=== PATIENT | female | born 1980 | race Caucasian/White ===

== ENCOUNTER 2016-08-14 18:12 | Inpatient (IN) | payer OTHER ==
--- NOTE | 2016-08-14 18:37 | EDPHY ---
H & P Stated Complaint: SOB, Dizzy. Time Seen by Provider: 08/14/16 18:37 - Personal History LMP (Females 10-55): 15-21 Days Ago Current Tetanus/Diphtheria Vaccine: Yes Current Tetanus Diphtheria and Acellular Pertussis (TDAP): Yes - Medical/Surgical History Hx Asthma: No Hx Chronic Respiratory Disease: No Hx Diabetes: No Hx Cardiac Disease: No Hx Renal Disease: No Hx Cirrhosis: No Hx Alcoholism: No Hx HIV/AIDS: No Hx Splenectomy or Spleen Trauma: No Other PMH: PMH: denies - Social History Smoking Status: Never smoked Constitutional: Initial Vital Signs Temperature (C) 36.6 C 08/14/16 18:24 Heart Rate 118 H 08/14/16 18:24 Respiratory Rate 24 H 08/14/16 18:24 Blood Pressure 110/86 H 08/14/16 18:24 O2 Sat (%) 80 L 08/14/16 18:24 O2 Delivery Mode Simple Mask O2 (L/minute) 10 Allergies/Adverse Reactions: No Known Allergies Allergy (Verified 08/14/16 20:29) Home Medications: Medication Instructions Recorded Cholecalciferol Vit D3 [Vitamin D3 5,000 units PO DAILY 08/14/16 (*)] Herbals/Supplements -Info Only 1 ea PO DAILY 08/14/16 Multivitamins [Multivitamin (*)] 1 each PO DAILY 08/14/16 Norethindrone AC-Eth Estradiol 1 tab PO DAILY 08/14/16 [Junel 1 mg-20 Mcg Tablet] Medical Decision Making ED Course/Re-evaluation: CHIEF COMPLAINT: Skiing injury, shortness of breath. HISTORY OF PRESENT ILLNESS: This patient is a 36 year old female who presents to the Emergency Department following a ski injury this afternoon. She tells me that hit the roots of a tree when she flipped over, landing face-down in the snow. She was wearing a helmet at the time and denies loss of consciousness. Upon arrival, her only complaint is shortness of breath. She states that she is unable to walk more than a few steps before becoming acutely out of breath. She denies head, chest, or neck pain. No pertinent medical history. REVIEW OF SYSTEMS: A 10 point review of systems was performed and is negative with the exception of the elements mentioned in the history of present illness. PHYSICAL EXAM: HR 113, BP 110/86, O2 Sat 85%, RR 24. Temp noted General Appearance: Alert, well hydrated, appropriate, and non-toxic appearing. Head: Atraumatic without scalp tenderness or obvious injury Eyes: Pupils equal, round, reactive to light and accommodation, EOMI, no trauma , no injection. Ears: Clear bilaterally, no perforation, normal landmarks Nose: Atraumatic, no rhinorrhea, clear. Throat: There is no erythema or exudates, no lesions, normal tonsils, mucus membranes moist. Neck: Supple, 2+ carotid upstroke, nontender, no lymphadenopathy. Respiratory: No retractions, no distress, no wheezes, and no accessory muscle use. Lungs are clear to auscultation bilaterally. Cardiovascular: Regular rate and rhythm, no murmurs, rubs, or gallops. Bilateral carotid, radial, dorsalis pedis, and posterior tibial pulses intact. Good capillary refill all extremities. Gastrointestinal: Abdomen is soft, nontender, non-distended, no masses, no rebound, no guarding, no peritoneal signs. Musculoskeletal: Normal active ROM of all extremities, atraumatic. Neurological: Alert, appropriate, and interactive. The patient has normal DTRs and non-focal cranial nerves, motor, sensory, and cerebellar exam. Skin: No rashes, good turgor, no nodules on palpation. Past medical history: Denies. Past surgical history: Denies. Social history: Partner at bedside. Works in [employer] at [place]. DIAGNOSTICS/PROCEDURES/CRITICAL CARE TIME: EKG INTERPRETATION: The 12 lead EKG was interpreted by myself: Sinus tachycardia, rate 108. Technically challenged but otherwise normal. See hard copy and/or "tracemaster" electronic copy for interpretation. IMAGING: Study: X-ray of the chest Indication: Shortness of breath, hypoxemia Results: X-ray of the chest was obtained. The results of the study are: negative for acute process. The study was read by the radiologist, Dr. Stevenson Polanco. I viewed the images myself on the PACS system. Study: CT of the chest Indication: Shortness of breath, hypoxemia Results: CT of the chest was obtained. The results of the study are: bilateral proximal pulmonary emboli. The study was read by the radiologist, Dr. Stevenson Polanco. I viewed the images myself on the PACS system. DIFFERENTIAL DIAGNOSIS: The differential diagnosis for the patient's shortness of breath and hypoxemia included but was not limited to pneumothorax, acute mountain sickness, high altitude pulmonary edema, congestive heart failure , and pulmonary embolus. MEDICAL DECISION MAKING: This is a 36 year old female who presents following a ski injury without pain or complaints apart from dyspnea. She is, however, tachycardic and hypoxemic on the monitor ranging from 83% to 85% on RA. I am suspicious of possible pneumothorax and will proceed with a chest x-ray at this time. The patient has given consent for this. 1855: X-ray of the chest is negative for pneumothorax. Will proceed with CT of the chest and i-Stat for further evaluation. 1933: CTA of the chest is positive for bilateral proximal pulmonary emboli, as reported to me by Dr. Stevenson Polanco. I shared these results with the patient. Will proceed with admission. 1934: Consultation with Dr. Gina Eden, hospitalist, who accepts admission to the ICU. She requests administration of IV Heparin. Doppler US of both lower extremities is ordered as well prior to admission 2030: Labs demonstrate an elevated Troponin secondary to heart strain. I discussed this with Dr. Gina Eden so that she may determine next steps with the critical care team as the patient transitions to the ICU. - Data Points Laboratory Results: Laboratory Results 08/14/16 18:45 08/14/16 18:45 08/14/16 08/14/16 18:59 18:45 WBC 11.43 H 10^3/uL (3.80-9.50) RBC 4.86 10^6/uL (4.18-5.33) Hgb 15.2 g/dL (12.6-16.3) POC Hgb 13.9 gm/dL (12.3-15.9) Hct 43.6 % (38.0-47.0) POC Hct 41 % (35.5-47.5) MCV 89.7 fL (81.5-99.8) MCH 31.3 pg (27.9-34.1) MCHC 34.9 g/dL (32.4-36.7) RDW 12.5 % (11.5-15.2) Plt Count 197 10^3/uL (150-400) MPV 9.7 fL (8.7-11.7) Neut % (Auto) 79.8 H % (39.3-74.2) Lymph % (Auto) 14.3 L % (15.0-45.0) [place] % (Auto) 4.9 % (4.5-13.0) Eos % (Auto) 0.2 L % (0.6-7.6) Baso % (Auto) 0.5 % (0.3-1.7) Nucleat RBC Rel Count 0.0 % (0.0-0.2) Absolute Neuts (auto) 9.12 H 10^3/uL (1.70-6.50) Absolute Lymphs (auto) 1.64 10^3/uL (1.00-3.00) Absolute Monos (auto) 0.56 10^3/uL (0.30-0.80) Absolute Eos (auto) 0.02 L 10^3/uL (0.03-0.40) Absolute Basos (auto) 0.06 10^3/uL (0.02-0.10) Absolute Nucleated RBC 0.00 10^3/uL (0-0.01) Immature Gran % 0.3 % (0.0-1.1) Immature Gran # 0.03 10^3/uL (0.00-0.10) PT 12.8 SEC (12.0-15.0) INR 0.97 (0.83-1.16) APTT 25.2 SEC (23.0-38.0) POC Sodium 141 mEq/L (134-144) Sodium 139 mEq/L (134-144) POC Potassium 4.1 mEq/L (3.3-5.0) Potassium 4.1 mEq/L (3.5-5.2) POC Chloride 106 mEq/L (96-108) Chloride 106 mEq/L (97-110) Carbon Dioxide 21 L mEq/l (22-31) Anion Gap 12 mEq/L (8-16) POC BUN 15 mg/dL (7-23) BUN 13 mg/dL (7-23) Creatinine 0.8 mg/dL (0.6-1.0) POC Creatinine 0.8 mg/dL (0.6-1.2) Estimated GFR > 60 Glucose 118 H mg/dL (70-100) POC Glucose 120 H mg/dL (70-100) Calcium 8.9 mg/dL (8.5-10.4) Troponin I 0.536 H ng/mL (0-0.034) NT-Pro-B Natriuret Pep 341 H pg/mL (0-125) Medications Given: Discontinued Medications Heparin Sodium (Porcine) (Heparin Injection) 0 unit IVP EDNOW ONE PRN Reason: Protocol Stop: 08/14/16 19:40 Last Admin: 08/14/16 20:32 Dose: 5,300 units Heparin Sodium (Porcine) (Heparin 50 Units/Ml (Premix)) 500 mls @ 0 mls/hr IV EDNOW ONE; Per Protocol PRN Reason: Protocol Stop: 08/14/16 19:40 Last Admin: 08/14/16 20:32 Dose: 500 mls Point of Care Test Results: 08/14/16 18:59 POC Sodium 141 POC Potassium 4.1 POC Chloride 106 POC BUN 15 POC Creatinine 0.8 POC Glucose 120 H Departure - Departure Disposition: [facility] Inpatient Acute Clinical Impression: Pulmonary emboli Qualifiers: Pulmonary embolism type: other Chronicity: acute Acute cor pulmonale presence: without acute cor pulmonale Qualifier Code: (I26.99) Other pulmonary embolism without acute cor pulmonale Condition: Fair Report Scribed for: Bruce Warren Report Scribed by: Cee Poole Date of Report: 08/14/16 Time of Report: 18:38
--- NOTE | 2016-08-14 18:58 | CPEKG ---
Heart Rate: 108 RR Interval: 556 P-R Interval: 136 QRSD Interval: 82 QT Interval: 344 QTC Interval: 461 P Tatamy: 66 QRS Tatamy: 75 T Wave Tatamy: 11 EKG Severity - OTHERWISE NORMAL ECG - EKG Impression: SINUS TACHYCARDIA Electronically Signed By: Bruce Warren 14-Aug-2016 23:03:09
--- NOTE | 2016-08-14 18:59 | DX ---
Portable Chest 18:49 History: Dyspnea after blunt chest trauma Comparison: None Findings: Lungs clear without consolidation, hemorrhage, effusion or pneumothorax. Heart and mediasti num look normal. No acute fracture is identified. There are old healed distal right clavicular shaft and right lateral seventh rib fractures. The thoracic spine is normally aligned and there is no luca francisco stripe widening. EKG leads and oxygen tubing overlie the chest. Impression: Nothing acute identified.
[2016-08-14] MEDS ORDERED: IOPAMIDOL (ISOVUE-300) 100 ML BTL IV ONE (19:07)
[2016-08-14 19:34] LABS: % IMMATURE GRANULYOCYTES 0.3 % (0.0-1.1); ABSOLUTE IMMATURE GRANULOCYTES 0.03 10^3/uL (0.00-0.10); ADD DIFF? NO; ADD MORPH? NO; ADD SCAN? NO; ATYPICAL LYMPHOCYTE FLAG 0 (0-99); FRAGMENT RBC FLAG 0 (0-99); HEMATOCRIT 43.6 % (38.0-47.0); HEMOGLOBIN 15.2 g/dL (12.6-16.3); LEFT SHIFT FLG 0 (0-99); LIPEMIA HEMOLYSIS FLAG 90 (0-99); MEAN CELL HEMOGLOBIN 31.3 pg (27.9-34.1); MEAN CELL HEMOGLOBIN CONCENTR. 34.9 g/dL (32.4-36.7); MEAN CELL VOLUME 89.7 fL (81.5-99.8); MEAN PLATELET VOLUME 9.7 fL (8.7-11.7); PLATELET CLUMPS FLAG 0 (0-99); PLATELET COUNT 197 10^3/uL (150-400); RED BLOOD CELL COUNT 4.86 10^6/uL (4.18-5.33); RED CELL DISTRIBUTION WIDTH 12.5 % (11.5-15.2)
[2016-08-14 19:39] LABS: APTT 25.2 SEC (23.0-38.0); INR 0.97 (0.83-1.16); PROTIME(PATIENT) 12.8 SEC (12.0-15.0)
[2016-08-14] MEDS ORDERED: HEPARIN/DEXTROSE 500 ML IV ONE (19:39)
[2016-08-14] MEDS ORDERED: HEPARIN 10,000 UNIT/10 ML MDV IVP ONE ×2 (19:39→20:25)
[2016-08-14 19:40] LABS: ANION GAP 12 mEq/L (8-16); CALCIUM 8.9 mg/dL (8.5-10.4); CARBON DIOXIDE 21 mEq/l (22-31); CHLORIDE 106 mEq/L (97-110); CREATININE 0.8 mg/dL (0.6-1.0); GLOMERULAR FILTRATION RATE > 60; GLUCOSE 118 mg/dL (70-100); POTASSIUM 4.1 mEq/L (3.5-5.2); SODIUM 139 mEq/L (134-144)
[2016-08-14 19:52] LABS: TROPONIN I 0.536 ng/mL (0-0.034)
[2016-08-14] MEDS ORDERED: HEPARIN 10,000 UNIT/10 ML MDV IVP PRN (20:25)
[2016-08-14] MEDS ORDERED: NS 1,000 ML IV ONE ×2 (20:36→20:39)
[2016-08-14] MEDS ORDERED: ONDANSETRON 4 MG/2 ML VIAL IVP PRN (20:40)
[2016-08-14] MEDS ORDERED: ACETAMINOPHEN 325 MG TAB PO PRN (20:40)
--- NOTE | 2016-08-14 21:20 | CT ---
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 Chest pain and shortness of breath. Technique: During machine power injection of 85 mL [id number]-300, intravenously, multidetector helical CT imaging was performed from the superior thoracic inlet to the diaphragm. The radiologist manipula prema images at the computer workstation. Dose reduction techniques were utilized. Comparison: None. Findings: The patient does not have any posttraumatic findings. Specifically, there is no pulmonary contusion. No pulmonary edema. No pneumothorax or pneumomediastinum. No fractures. What the patient does have is extensive bilateral pulmonary embolism, involving the distal main pulmo nary arteries, especially on the left, and subsequently multiple segmental branches in both lower lob es. There is a partially occlusive clot in the right middle lobe. The upper lobes are relatively sp ared. Visualized upper abdomen is normal. Impressions 1. No fractures, pneumothorax, or mediastinal injury. 2. Extensive bilateral pulmonary embolism, involving main distal pulmonary arteries, and multiple lo wer lobe segmental arteries. Please see details above. Findings are discussed with Dr. Bruce Warren.
--- NOTE | 2016-08-14 21:29 | US ---
Bilateral Lower Extremity Duplex Venous Doppler INDICATION: Significant bilateral pulmonary embolism. Evaluate source. TECHNIQUE: Bilateral lower extremity venous Doppler and mendez-scale evaluation is performed. FINDINGS: Right lower extremity duplex Doppler is normal. There is a very short segment of the left popliteal artery that contains what looks like partially oc clusive chronic or subacute clot. This clot is adherent to the anterior wall. There is flow through the posterior segment of it. The total segment involved is probably only about 4 to 5 cm. The calf vessels and the thigh vessels are otherwise totally normal on the left. Impressions 1. Negative right lower externally Doppler. 2. Partially occlusive short segment popliteal clot that appears either chronic or subacute. Could it be possible that because of the patient's recent skiing activity, she sustained acute on chronic c lot that has not had the chance to manifest clinically, and with today's fall, was abruptly dislodged , creating extensive bilateral pulmonary emboli? Findings are discussed with Dr. Bruce Warren.
--- NOTE | 2016-08-14 21:33 | GHP ---
[f rep st] HISTORY AND PHYSICAL DATE OF ADMISSION: 08/14/2016 CHIEF COMPLAINT: Shortness of breath. 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 She flipped over, landed face down. She popped out of both of her skis. She did h it her head but was wearing a helmet and never had any loss of consciousness. At this point she aaron es any significant physical injury from the fall. Immediately after her fall when she got up, she noted she was having more problems breathing. Prior to her fall she was skiing relatively hard without any shortness of breath. After her fall she got v selena winded just [place] the [place] the [place]. She tried to take a break but was having ongoi ng dizziness and lightheadedness and shortness of breath and so called paramedics. They found her to be tachycardic. She was brought to urgent care, and she was found to be significantly hypoxemic and eventually came to the emergency room. She denies any lower extremity edema. She was feeling in he r normal state of health until this fall. She denies any chest pain. She would just get extremely w inded and could only take a few steps before having to stop to catch her breath. PAST MEDICAL HISTORY: 1. Distant viral meningitis. 2. Multiple orthopedic injuries. MEDICATIONS: She is on oral contraceptive. ALLERGIES: No known drug allergies. SOCIAL HISTORY: No smoking. Occasional alcohol. 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 She lives with her . REVIEW OF SYSTEMS: Complete review of systems obtained. Review of systems is negative on constituti onal, HEENT, GI, pulmonary, cardiovascular, , hematology, skin, musculoskeletal, endocrine, psych e xcept for positives as in HPI. FAMILY HISTORY: Negative for pulmonary embolus. PHYSICAL EXAMINATION: GENERAL: Well-developed, well-nourished female in no acute distress. VITAL S IGNS: Temperature is 36.6, pulse 120, respirations 24, blood pressure 107/83, saturating 88% on 10 L . EYES: Normal conjunctivae. Pupils react to light. ENT: Normal ears, nose. Hearing intact. No rmal lips and teeth. Oropharynx moist. NECK: Trachea midline. No thyromegaly. CHEST: Normal eff ort. LUNGS: Clear to auscultation bilaterally. CARDIOVASCULAR: Regular rhythm. No murmur. No lo wer extremity edema. She is tachycardic. ABDOMEN: Soft, nontender. No hepatosplenomegaly. SKIN: Warm, dry, intact. No rash. MUSCULOSKELETAL: No cyanosis or clubbing. Strength 5/5 upper and low er extremities. NEUROLOGIC: Cranial nerves intact. Normal sensation to light touch. PSYCHIATRIC: Alert and oriented x3. Normal affect. Normal judgment. Normal memory. LABORATORY DATA: White count 11.43, hematocrit 43.6, platelets 197, sodium 139, potassium 4.1, chlor blaine 106, bicarb 21, BUN 13, creatinine 0.8, glucose 118, troponin 0.536, BNP is 341. EKG viewed. My personal interpretation is sinus tachycardia. This case was discussed with Dr. Bruce Warren. He was initially going to get Xarelto but instead I a sked for IV heparin in case she does decline and needs lytic therapy. We are admitting to ICU due to her instability. He will order lower extremity ultrasounds to rule out DVT. ASSESSMENT AND PLAN: 1. Massive pulmonary embolus. She has had severe hypoxemia and tachycardia. We will admit to ICU. We will initiate her on IV heparin. I have consulted Pulmonary Medicine and spoken personally with [employer] [facility]. I think she has a significant amount of RV strain and clinical instability and lytics shou ld be considered. He will consult and consider administering lytics based on her clinical course. S he has not yet received any IV fluids in the emergency room and so he did recommend 2 L of IV fluid q uickly followed by normal saline at 150 hours. I will check a stat echo to look for RV strain. Her lower extremity ultrasound Dopplers are pending to see whether there is any residual deep venous thro mbosis. Her troponin elevation does suggest a significant amount of RV strain as does her clinical i nstability. I discussed with her the need to indefinitely stop estrogen-containing contraceptives. She should del real ve a full hypercoagulable workup performed as an outpatient. The timing of onset of symptoms is inte resting regarding the fall and it is difficult to tie this in except my suspicion is that she did hav e a leg deep venous thrombosis which was lodged loose during her ski fall although sequence of events is somewhat unusual. Critical care time spent is 1 hour. The patient is extremely high risk and clinically unstable with high risk for further decompensation. ADMISSION STATUS: Inpatient as she is critically ill. CODE STATUS: Full. /[id number]/MODL
[2016-08-14] MEDS ORDERED: NS 1,000 ML IV SCH (22:30)
[2016-08-14] MEDS: NS 1,000 ML IV SCH (22:40)
[2016-08-15] MEDS: NS 1,000 ML IV SCH (04:59)
[2016-08-15 06:20] LABS: % IMMATURE GRANULYOCYTES 0.4 % (0.0-1.1); ABSOLUTE IMMATURE GRANULOCYTES 0.03 10^3/uL (0.00-0.10); ADD DIFF? NO; ADD MORPH? NO; ADD SCAN? NO; ATYPICAL LYMPHOCYTE FLAG 0 (0-99); FRAGMENT RBC FLAG 0 (0-99); HEMATOCRIT 34.8 % (38.0-47.0); LEFT SHIFT FLG 0 (0-99); LIPEMIA HEMOLYSIS FLAG 90 (0-99); MEAN CELL HEMOGLOBIN 31.4 pg (27.9-34.1); MEAN CELL HEMOGLOBIN CONCENTR. 34.5 g/dL (32.4-36.7); MEAN CELL VOLUME 91.1 fL (81.5-99.8); MEAN PLATELET VOLUME 9.8 fL (8.7-11.7); PLATELET CLUMPS FLAG 0 (0-99); PLATELET COUNT 137 10^3/uL (150-400); RED BLOOD CELL COUNT 3.82 10^6/uL (4.18-5.33); RED CELL DISTRIBUTION WIDTH 12.5 % (11.5-15.2)
[2016-08-15 06:54] LABS: ANION GAP 8 mEq/L (8-16); CALCIUM 7.7 mg/dL (8.5-10.4); CARBON DIOXIDE 18 mEq/l (22-31); CHLORIDE 115 mEq/L (97-110); CREATININE 0.8 mg/dL (0.6-1.0); GLOMERULAR FILTRATION RATE > 60; GLUCOSE 90 mg/dL (70-100); POTASSIUM 3.7 mEq/L (3.5-5.2); SODIUM 141 mEq/L (134-144)
[2016-08-15 07:06] LABS: TROPONIN I 0.431 ng/mL (0-0.034)
--- NOTE | 2016-08-15 09:16 | HOSPPROG ---
Hospitalist Progress Note Assessment/Plan: #Acute pulmonary embolism -possibly due to dislodged DVT. TTE with significant RV strain -wean off oxygen as tolerated. If any clinical deterioration including will consider t-PA -advised to stop oral contraceptives -discussed oral anticoagulation. She may change jobs, thus change in insurance. Coumadin may be better financial standpoint. Treatment for 6mnths-1yr -hypercoag work up outpatient #NSTEMI -due to PE, TTE pending #Acute hypoxic resp failure: wean oxygen as tolerated #Diet: regular #DVT ppx: heparin #Disp: warrant ICU admission given acute hypoxia and large PE. Cont IV heparin and pulse ox Subjective: SOB with only exertion. No CP or dizziness Objective: Vital Signs Temp Pulse Resp BP Pulse Ox 36.8 C 90 20 110/77 97 08/15/16 07:00 08/15/16 08:00 08/15/16 08:00 08/15/16 08:00 08/15/16 08:00 Laboratory Results 08/15/16 06:02 08/15/16 06:02 08/14/16 08/15/16 08/16/16 05:59 05:59 05:59 Intake Total 1868 Output Total 700 Balance 1168 PT 12.8 SEC (12.0-15.0) 08/14/16 18:45 INR 0.97 (0.83-1.16) 08/14/16 18:45 - Physical Exam Constitutional: no apparent distress Eyes: PERRL Ears, Nose, Mouth, Throat: moist mucous membranes, hearing normal Cardiovascular: regular rate and rhythym, no murmur, rub, or gallop Respiratory: no respiratory distress, no rales or rhonchi Gastrointestinal: normoactive bowel sounds, soft, non-tender abdomen Genitourinary: no bladder fullness Skin: warm Musculoskeletal: full muscle strength Neurologic: AAOx3 Psychiatric: interacting appropriately ICD10 Worksheet Patient Problems: Problems Problem Status Diagnosed Pulmonary emboli Acute
--- NOTE | 2016-08-15 09:49 | GCON ---
[f rep st] CONSULTATION PULMONARY/CRITICAL CARE CONSULTATION DATE OF CONSULTATION: 08/15/2016 REFERRING PHYSICIAN: Gina Eden MD REASON FOR REFERRAL: Evaluation and management of massive pulmonary embolism. HISTORY: The patient is a 36-year-old woman who was in her usual state of excellent health when she was skiing yesterday at [place] and hit a root, falling pretty hard on her face. She did not have any head injury or loss of consciousness, but as soon as she got up and put her skis back on, she notice d that she was remarkably short of breath. She denies any shortness of breath whatsoever prior to , stating that she was skiing pretty hard without any degree of dyspnea. She also denies any leg s welling. Because she was having so much difficulty with shortness of breath, she went to the first a id station at [place] where they found that she was tachycardic and tachypneic. When she tried to get up and walk around to leave, she was extremely short of breath, so went down to an urgent care [facility] and was transferred to [facility] Emergency Department, where a CAT scan found a la rge pulmonary embolism. She was hypoxemic, with oxygen saturations in the 80s, despite high-flow oxy gen. She was given IV fluids, started on heparin, and transferred to the ICU. She currently denies any symptoms of shortness of breath or chest pain while at rest, although she states that she was not really short of breath when she was at rest up at [place], only with exertion. She denies any cough and does not have any leg swelling. She denies any prior history of leg swelling or unexplained dysp neelima. PAST MEDICAL HISTORY: Viral meningitis. MEDICATIONS: Oral contraceptives. ALLERGIES: None. SOCIAL HISTORY: The patient does not smoke or drink. 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 FAMILY HISTORY: Her maternal uncle apparently had peripheral vascular disease and "blood clots," but it is unclear if these were venous or arterial. REVIEW OF SYSTEMS: A 10-point review of systems adds nothing to the History of Present Illness. PHYSICAL EXAMINATION: GENERAL: The patient is awake, alert, in no acute distress. VITAL SIGNS: He r blood pressure is 110/77, up from a low of 98/63. Her heart rate is 90 and was in the 80s earlier this morning when she was sleeping. Her heart rate was in the 114-120 range when she presented to [facility] emergency department. Her oxygen saturations are 97% on 10 L, up from oxygen saturations in the up per 80s on 10 L when she presented to the emergency department. LABORATORY DATA: Hemoglobin is 12.0, down from 15.2. Chemistry group is normal. Troponin is 0.43, down from a peak of 0.73. BNP was 340. A CT scan of the chest shows a large volume of pulmonary emb vinita. Her left lower lobe is nearly completely occluded, and her right lower lobe is approximately 50 % occluded. Her middle lobe lingula are also about 50% occluded, and her upper lobes are free of dis ease. Her RV is dilated. Images reviewed. An echocardiogram done, by verbal report, demonstrated m assive dilation of the RV. An ultrasound of the lower extremities demonstrates a very small segment of chronic-appearing adherent clot in the left popliteal vein. ASSESSMENT: Large pulmonary embolism. The patient has had a blood clot that by my estimate includes slightly more than 50% or more of the cross-sectional area of her pulmonary arteries. There is no s addle embolus. She had significant hemodynamic compromise with mild hypotension, as well as tachycar shannan and significant hypoxemia. She has an initial presentation with dyspnea and lightheadedness, but no syncope. An echocardiogram shows significant RV dilatation. Clinically, she has improved with 2 L of IV fluids, as well as continued oxygen, with improved oxygenation and reduced heart rate with i ncreased blood pressure. She has fairly good urine output. I had a discussion with both Dr. Fatima and Dr. Eden last night regarding the option of standard therapy with heparin or the use of thrombolyti cs, either peripherally or catheter directed. Given that she was responding initially to conservativ e measures of fluid replacement and heparin, I elected to recommend that she continue on that course of therapy and defer the use of tPA. Given her clinical course overnight, I would continue on this c ourse of therapy and hold off on lytics at this point. Her primary risk factor for pulmonary embolis m was her use of oral contraceptives. She may also have a family history on her mother's side, but t hat it is not entirely clear that that includes venous thromboembolism. I had a discussion with the patient regarding both her short-term and long-term treatment, and questions were answered. RECOMMENDATIONS: 1. Continue to monitor in the ICU. 2. Continue IV heparin. If she has any signs of hemodynamic instability, including cardiac arrhythm ias or increased symptoms, tPA will be reconsidered. 3. If the patient does fairly well, she can be converted to an oral anticoagulant and could potentia lly be discharged in a few days. 4. I would anticipate at least a year of therapy with anticoagulation. I could make the argument th at she should be on anticoagulation indefinitely given the large size of the pulmonary emboli and her low clinical risk of bleeding given her age and absence of medical conditions, but since she is quit e active, that does increase the risk of trauma. Additionally, if she stops oral anticoagulants, karoline t may have been the main precipitating cause here, and she may have an acceptable risk of further DVT s if she were to stop anticoagulation in a year or so. This can all be discussed at a future date wh en we consider stopping anticoagulation. 5. Hypercoagulability panel will be checked. /[id number]/MODL
--- NOTE | 2016-08-15 11:17 | ECHO ---
[id number] + + [address] : : [place] [address] : : [phone] + + Adult Echocardiographic Report + -------+ :Name: Valeriano GRAYSON Date: 08/14/2016 09:19 PM : : Hospital Admission Number: [id number] Locati on: 256: :: 1980 Gender: Female Height: 67 in : :Age: 36 yrs Race: WH Weight: 180 lb : :Reason For Study: Massive PE : : BSA: 1.9 meter s2 : + -------+ MMode/2D Measurements & Calculations IVSd: 0.75 cm LVIDd: 3.9 cm FS: 35.5 % Ao root diam: 3.8 cm LVPWd: 0.72 cm LVIDs: 2.5 cm EDV(Teich): 67.4 ml LA dimension: 1.6 cm ESV(Teich): 23.2 ml EF(Teich): 65.6 % Normal Measurement Values: + + :LVIDd (3.5-5.7cm) IVSd (0.6-1.1cm) LVPWd (0.6-1.1cm) Aortic Root (2.0-3.7cm)Left Atrium (1.5-4.0cm): :LV Vol(d) (76-115ml) LV Vol(s) (29-48ml) Ejec Fraction (50-65%)PV Arian (0.6- 1.2m/s) TV Arian (0.4-1.0m/s) : :MV E Arian (0.8-1.0m/s)MV A Arian (0.3-1.0m/s)LVOT Arian (0.7-1.2m/s) Asc Ao Arian ( 0.9-1.8m/s) : + + Doppler Measurements & Calculations MV E max arian: 42.0 cm/sec Ao V2 max: 86.9 cm/sec TR max arian: 268.8 cm/sec MV A max arian: 75.5 cm/sec Ao max P.0 mmHg TR max P.9 mmHg MV E/A: 0.56 RAP systole: 10.0 mmHg RVSP(TR): 38.9 mmHg Left Ventricle The left ventricular cavity is small. The left ventricle is hyperdynamic. Flattened septum is consistent with RV pressure overload. Right Ventricle The right ventricle is moderate to severely dilated. The right ventricular systolic function is severely reduced. Atria The left atrial size is normal. The right atrium is moderate to severely dilated. The interatrial septum is intact with no evidence for an atrial septal defect. Mitral Valve The mitral valve is normal. Tricuspid Valve Normal tricuspid valve. There is moderate tricuspid regurgitation. Right ventricular systolic pressure is 39mmHg. Aortic Valve The aortic valve opens well. Pulmonic Valve The pulmonic valve is normal in structure and function. Great Vessels The aortic root is normal size. Pericardium/Pleural There is no pericardial effusion. Conclusion A complete two-dimensional transthoracic echocardiogram was performed (2D, M-mode, Doppler and color flow Doppler). (1) Left ventricular systolic ejection fraction was normal (55-60%) - small left ventricular cavity size (2) No left ventricular hypertrophy (3) Diastolic function was not assessed in this study (4) Moderate to severe dilation of the right ventriuclar chamber with reduction (moderate to severe) reduction in systolic function (5) Normal left atrial size. Moderate to severe right atrial enlargement (6) Grossly normal mitral valve (7) Grossly normal aortic valve (8) Grossly normal tricuspid valve with moderate regurgitation noted - RVSP was estimated to be 35-40 mm Hg (9) Poor visualization of the pulmonic valve (10) No comparison echocardiograms - findings are suggestive of pulmonary embolism given the RV/RA dilation noted Final Reading Physician: Maru Pack signed on 08/15/2016 11:16 AM Ordering Physician: Gina Eden Performed By: Bela Salazar RDCS
[2016-08-15] MEDS: HEPARIN/DEXTROSE 500 ML IV SCH (14:27)
[2016-08-15] MEDS ORDERED: RIVAROXABAN 15 MG TAB PO ONE (19:31)
[2016-08-16 04:13] LABS: ANION GAP 9 mEq/L (8-16); CALCIUM 8.3 mg/dL (8.5-10.4); CARBON DIOXIDE 24 mEq/l (22-31); CHLORIDE 111 mEq/L (97-110); CREATININE 0.8 mg/dL (0.6-1.0); GLOMERULAR FILTRATION RATE > 60; GLUCOSE 91 mg/dL (70-100); POTASSIUM 3.9 mEq/L (3.5-5.2); SODIUM 144 mEq/L (134-144)
[2016-08-16 04:18] LABS: HEMATOCRIT 37.5 % (38.0-47.0); HEMOGLOBIN 12.7 g/dL (12.6-16.3); MEAN CELL HEMOGLOBIN 31.4 pg (27.9-34.1); MEAN CELL HEMOGLOBIN CONCENTR. 33.9 g/dL (32.4-36.7); MEAN CELL VOLUME 92.8 fL (81.5-99.8); RED BLOOD CELL COUNT 4.04 10^6/uL (4.18-5.33); RED CELL DISTRIBUTION WIDTH 12.6 % (11.5-15.2)
[2016-08-16] MEDS: HEPARIN/DEXTROSE 500 ML IV SCH ×2 (07:30→22:05)
--- NOTE | 2016-08-16 12:10 | HOSPPROG ---
Hospitalist Progress Note Assessment/Plan: #Acute pulmonary embolism -possibly due to dislodged DVT. TTE with significant RV strain -advised to stop oral contraceptives -heparin gtt, Coumadin today. Treatment for at least 1 year. Light activity in room -hypercoag labs pending #NSTEMI -due to PE, TTE with RV strain #Acute hypoxic resp failure: wean oxygen as tolerated. [place] need oxygen at [place] #Diet: regular #DVT ppx: heparin #Disp: stable to med-surg with telemetry Objective: Vital Signs Temp Pulse Resp BP Pulse Ox 36.9 C 95 20 115/82 H 96 08/16/16 07:00 08/16/16 10:00 08/16/16 10:00 08/16/16 10:00 08/16/16 10:00 Laboratory Results 08/16/16 03:45 08/16/16 03:45 08/15/16 08/16/16 08/17/16 05:59 05:59 05:59 Intake Total 1868 1503 Output Total 700 750 650 Balance 1168 753 -650 PT 12.8 SEC (12.0-15.0) 08/14/16 18:45 INR 0.97 (0.83-1.16) 08/14/16 18:45 - Physical Exam Constitutional: no apparent distress Eyes: PERRL Ears, Nose, Mouth, Throat: moist mucous membranes, hearing normal Cardiovascular: regular rate and rhythym, no murmur, rub, or gallop Respiratory: no respiratory distress, no rales or rhonchi Gastrointestinal: normoactive bowel sounds, soft, non-tender abdomen Genitourinary: no bladder fullness Skin: warm Musculoskeletal: full muscle strength Neurologic: AAOx3 ICD10 Worksheet Patient Problems: Problems Problem Status Diagnosed Pulmonary emboli Acute
--- NOTE | 2016-08-16 12:59 | PDINTPN ---
[employer] Progress Note Assessment/Plan: Assessment: Massive PE: Clinically stable, with mild tachycardia at rest. BP OK. No Sx at rest, although she was asymptomatic at rest when she came in. Plan: Slowly resume activity. Continue heparin. Start warfarin. Hopefully can go home in 1-2 days if able to do light activity such as walking without symptoms or HD instability. Should go on oxygen for the next few weeks, particularly since [place]'. 08/16/16 12:56 Subjective: Asymptomatic at rest, with no dyspnea, CP, lightheadedness Objective: Vital Signs Temp Pulse Resp BP Pulse Ox 36.9 C 95 20 115/82 H 96 08/16/16 07:00 08/16/16 10:00 08/16/16 10:00 08/16/16 10:00 08/16/16 10:00 Laboratory Results 08/16/16 03:45 08/16/16 03:45 08/15/16 08/16/16 08/17/16 05:59 05:59 05:59 Intake Total 1868 1503 440 Output Total 504 359 9027 Balance 1168 753 -810 PT 12.8 SEC (12.0-15.0) 08/14/16 18:45 INR 0.97 (0.83-1.16) 08/14/16 18:45 Physical Exam - Physical Exam General Appearance: alert, no apparent distress EENT: normal ENT inspection Neck: normal inspection Respiratory: lungs clear, normal breath sounds Cardiac/Chest: regular rate, rhythm, No edema Abdomen: normal bowel sounds, non-tender Skin: normal color, warm/dry Extremities: normal inspection Neuro/Psych: alert, normal mood/affect, oriented x 3 ICD10 Worksheet Patient Problems: Problems Problem Status Diagnosed Pulmonary emboli Acute
[2016-08-16] MEDS ORDERED: FLU VACC QS 2016-17(3-64YR)/PF 0.5 ML SYR (FLUARIX QUAD) IM ONE (14:53)
[2016-08-16] MEDS: WARFARIN SODIUM 5 MG TAB PO SCH (16:34)
[2016-08-17 05:53] LABS: HEMATOCRIT 41.3 % (38.0-47.0); HEMOGLOBIN 14.3 g/dL (12.6-16.3); MEAN CELL HEMOGLOBIN 32.1 pg (27.9-34.1); MEAN CELL HEMOGLOBIN CONCENTR. 34.6 g/dL (32.4-36.7); MEAN CELL VOLUME 92.6 fL (81.5-99.8); RED BLOOD CELL COUNT 4.46 10^6/uL (4.18-5.33); RED CELL DISTRIBUTION WIDTH 12.2 % (11.5-15.2)
[2016-08-17 06:23] LABS: ANION GAP 8 mEq/L (8-16); CALCIUM 8.8 mg/dL (8.5-10.4); CARBON DIOXIDE 22 mEq/l (22-31); CHLORIDE 110 mEq/L (97-110); CREATININE 0.8 mg/dL (0.6-1.0); GLOMERULAR FILTRATION RATE > 60; GLUCOSE 89 mg/dL (70-100); INR 0.94 (0.83-1.16); PROTIME(PATIENT) 12.5 SEC (12.0-15.0); SODIUM 140 mEq/L (134-144)
--- NOTE | 2016-08-17 07:05 | CPEKG ---
Heart Rate: 91 RR Interval: 659 P-R Interval: 132 QRSD Interval: 80 QT Interval: 408 QTC Interval: 503 P [place]: 63 QRS [place]: 49 T Wave [place]: 12 EKG Severity - BORDERLINE ECG - EKG Impression: SINUS RHYTHM EKG Impression: BORDERLINE T WAVE ABNORMALITIES EKG Impression: BORDERLINE PROLONGED QT INTERVAL Electronically Signed By: Jerome Pinto 17-Aug-2016 07:37:15
[2016-08-17] MEDS: WARFARIN SODIUM 5 MG TAB PO SCH (15:55)
[2016-08-17] MEDS: HEPARIN/DEXTROSE 500 ML IV SCH (15:56)
--- NOTE | 2016-08-17 17:38 | HOSPPROG ---
Hospitalist Progress Note Assessment/Plan: 36 yo F with no significant PMH pw acute PE #Acute bilateral pulmonary embolism -with RF being OCP and what appears to be dislodged DVT. Has been on heparin gtt and will transition to lovenox and coumadin given stability. #NSTEMI -due to PE, TTE with RV strain #Acute hypoxic resp failure: still requiring 2L to maintain o2 sats in 90s, will likely need to dc on home o2 especially [place] 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 Reviewed with her importance of getting up in the hospital, and that she will need to rest some at home. #Dispo: IP status, high risk given need for IV heparin Patient new to my care. Old records reviewed and summarized as above. Subjective: no significant overnight events, patient states she is still very weak and doesn't think she can get by at home given how much she has to do at home to make money Objective: Vital Signs Temp Pulse Resp BP Pulse Ox 36.9 C 89 18 118/85 H 95 08/17/16 15:58 08/17/16 15:58 08/17/16 15:58 08/17/16 15:58 08/17/16 15:58 Laboratory Results 08/17/16 05:13 08/17/16 05:13 08/16/16 08/17/16 08/18/16 05:59 05:59 05:59 Intake Total 1503 780 860 Output Total 750 1250 Balance 753 -470 860 PT 12.5 SEC (12.0-15.0) 08/17/16 05:13 INR 0.94 (0.83-1.16) 08/17/16 05:13 awake alert nad anicteric op clear rrr no mrg cta b soft nt nd no cce warm dry well perfused oriented appropraite - Time Spent With Patient Time Spent with Patient: greater than 35 minutes Time Spent with Patient: Greater than 35 minutes spent on this patients care, greater than 50% of time spent counseling, educating, and coordinating care regarding the above mentioned plan. ICD10 Worksheet Patient Problems: Problems Problem Status Diagnosed Pulmonary emboli Acute
[2016-08-17] MEDS: ENOXAPARIN 80 MG/0.8 ML SYR SC SCH (21:09)
[2016-08-18 05:03] VITALS: O2SAT 97
[2016-08-18 06:14] LABS: HEMATOCRIT 40.7 % (38.0-47.0); HEMOGLOBIN 14.1 g/dL (12.6-16.3); MEAN CELL HEMOGLOBIN 31.2 pg (27.9-34.1); MEAN CELL HEMOGLOBIN CONCENTR. 34.6 g/dL (32.4-36.7); RED BLOOD CELL COUNT 4.52 10^6/uL (4.18-5.33); RED CELL DISTRIBUTION WIDTH 12.2 % (11.5-15.2)
[2016-08-18 06:23] LABS: ANION GAP 10 mEq/L (8-16); CALCIUM 8.9 mg/dL (8.5-10.4); CARBON DIOXIDE 22 mEq/l (22-31); CHLORIDE 107 mEq/L (97-110); CREATININE 0.8 mg/dL (0.6-1.0); GLOMERULAR FILTRATION RATE > 60; GLUCOSE 89 mg/dL (70-100); POTASSIUM 4.1 mEq/L (3.5-5.2); SODIUM 139 mEq/L (134-144)
[2016-08-18 06:24] LABS: INR 0.99 (0.83-1.16)
[2016-08-18 08:28] VITALS: BP 103/66; PULSE 73; RESP 16; TEMP 98.2
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
[2016-08-18] MEDS: ENOXAPARIN 80 MG/0.8 ML SYR SC SCH (10:02)
[2016-08-18 13:37] LABS: PROTEIN C ACTIVITY 89 % (70 - 150)
[2016-08-18 14:00] LABS: FACTOR II ACTIVITY 114 % (75 - 145)
[2016-08-19 12:06] LABS: PROTEIN S ACTIVITY 80 % (50 - 160)
== END 2016-08-18 12:37 | disposition home or self-care (01) | DRG 175 ==
LOC: F2N 21:10 → F3E 08-16 14:26
PROVIDERS: ADMIT Internal Medicine; ATTEND Internal Medicine
DX: I26.99 Other pulmonary embolism without acute cor pulmonale (principal); I82.532 Chronic embolism and thrombosis of left popliteal vein; J96.01 Acute respiratory failure with hypoxia; Z23 Encounter for immunization
CPT/HCPCS: 82947-QW; 85210-90; 85220-90; 85303-90; 85306-90; 85520-90; G0008; J1644; J1650; Q9967